=== PATIENT | male | born 1990 | race Caucasian/White ===

== ENCOUNTER 2018-07-22 09:44 | Emergency (ER) | payer OTHER ==
--- NOTE | 2018-07-22 09:58 | EDPHY ---
H & P Time Seen by Provider: 07/22/18 09:53 HPI/ROS: CHIEF COMPLAINT: Left hand laceration History of present illness: 27-year-old male Tavo fell onto his hand sustaining both blunt trauma and also laceration to the thenar eminence. Complaining of underlying osseous pain. Complaining of laceration. Patient was born in [place], has never had tetanus vaccination. PHYSICAL EXAM (Prior to examination, patient consented to physical exam, hands were washed and my usual and customary physical exam procedures followed) 1) GENERAL: Well-developed, well-nourished, alert and oriented. Appears to be in no acute distress. 2) HEAD: Normocephalic 3) HEENT: sclera anicteric 4) LUNGS: Breathing comfortably. 5) SKIN: 3 cm flap laceration with viable flap tissue 6) MUSCULOSKELETAL: Left thenar eminence 3 cm flap laceration. Tender to palpation underlying osseous structures. Opposition, abduction abduction extension flexion all intact with no deficits. 7) NEUROLOGIC: Full sensation distally, two-point discrimination intact. Smoking Status: Never smoked Constitutional: Initial Vital Signs Temperature (C) 36.8 C 07/22/18 09:45 Heart Rate 70 07/22/18 09:45 Respiratory Rate 16 07/22/18 09:45 Blood Pressure 130/79 H 07/22/18 09:45 O2 Sat (%) 100 07/22/18 09:45 O2 Delivery Mode Room Air Allergies/Adverse Reactions: No Known Allergies Allergy (Unverified 07/22/18 09:45) Home Medications: Medication Instructions Recorded Cephalexin [Keflex] 500 mg PO TID 5 Days cap 07/22/18 MDM/Departure - [facility] Imaging Results: Imaging Impressions Hand X-Ray 07/22/18 09:58 Impression: Soft tissue injury between the first and second metacarpals without evidence for osseous abnormality or radiopaque foreign body. Images reviewed myself Procedures: Procedure: Laceration repair. I explained the indications, risks and benefits for both laceration repair and anesthetic administration. Verbal consent was obtained from the patient. The laceration on the left thenar eminence was anesthetized using 0.5% bupivicaine with epinephrine. After anesthetic administered the patient was observed for a period of time and had no apparent adverse effects. The wound was cleaned, prepped, draped in normal sterile fashion and explored to its base. No foreign body seen, no foreign bodies palpated. There were no deep structures involved. No tendon injury was identified. The wound was repaired with 5 simple interrupted 5 O Prolene sutures. The wound repair was complex. The procedure was performed by myself. Patient has been informed that scarring will occur, although efforts have been made to minimize this. Procedure: Splint A Velcro thumb spica splint was applied by ER instrument technician in order to reduce stress on the laceration site. After application of the splint I returned and re-examined the patient. The splint was adequately immobilizing the joint and distal to the splint the patient's circulation and sensation were intact. Patient shows no signs of compartment syndrome. Was given orthopedic precautions. Medications Given: Discontinued Medications Cephalexin HCl (Keflex) 500 mg PO EDNOW ONE PRN Reason: Protocol Stop: 07/22/18 10:40 Last Admin: 07/22/18 10:57 Dose: 500 mg Diphtheria/Tetanus/Acell Pertussis (Boostrix) 0.5 ml IM .ONCE ONE Stop: 07/22/18 10:40 Last Admin: 07/22/18 10:57 Dose: 0.5 ml ED Course/Re-evaluation: Re-evaluation with serial exams. He has been given tetanus immune globulin and Boostrix as he has never been vaccinated. He is started on prophylactic antibiotics. He will need follow-up in the ER in 10 days for suture removal and also recommended work comp follow-up. Patient feels comfortable being discharged. All questions and concerns addressed by myself. Patient given my usual and customary discharge precautions and instructions regarding their clinical impression. Care of patient under supervision of secondary supervising physician Dr Drew Begum. - Depart Disposition: Home, Routine, Self-Care Clinical Impression: Laceration of left hand Qualifiers: Encounter type: initial encounter Foreign body presence: without foreign body Qualified Code(s): S61.412A - Laceration without foreign body of left hand, initial encounter Condition: Good Instructions: Care For Your Stitches (ED), Laceration (ED) Additional Instructions: Return to the ER if you develop redness, swelling, discharge, warmth to the wound, red streaks going up your arm or any other symptoms that concern you. Stand Alone Forms: Work Comp Follow Up Prescriptions: Cephalexin [Keflex] 500 mg PO TID 5 Days cap Referrals: Return, to the ER in 10 days for suture removal [Other] - 08/01/18
[2018-07-22] MEDS ORDERED: CEPHALEXIN 500 MG CAP PO ONE (10:39)
[2018-07-22] MEDS ORDERED: TETANUS IMMUNE GLOBULIN/PF 250 UNIT SYR IM ONE (10:39)
[2018-07-22] MEDS ORDERED: TDAP ADULT 0.5 ML INJ (BOOSTRIX) IM ONE (10:39)
[2018-07-22 11:22] VITALS: BP 128/71
== END 2018-07-22 11:22 | disposition home or self-care (01) ==
PROC: 0HQGXZZ Repair Left Hand Skin, External Approach (ICD-10-PCS; principal; 2018-07-22)
DX: S61.412A Laceration without foreign body of left hand, initial encounter (principal); Z23 Encounter for immunization; W19.XXXA Unspecified fall, initial encounter
CPT/HCPCS: J1670; L3807